=== PATIENT | female | born 1975 | race Caucasian/White ===

== ENCOUNTER 2018-02-15 05:36 | Day surgery (SDC) | END 2018-02-15 10:00 | disposition home or self-care (01) ==

== ENCOUNTER → 2018-11-06 | Emergency (ER) | payer OTHER ==
[~2018-11-06] VITALS: Ht 160 cm; Wt 71.1 kg
[~2018-11-06] MED LIST: HYDR-4011 PO; IBUP-1542 PO; IBUPROFEN 600 MG TAB PO ONE; IOHEXOL 300MG/ML 150 ML BTL ONE; MECLIZINE 12.5 MG TAB PO ONE; SOD CHLORIDE 0.9% 1,000 ML IV ONE; SOD CHLORIDE 0.9% 100 ML ONE
[2018-11-06 12:53] VITALS: Ht 160 cm; Wt 71.1 kg
--- NOTE | 2018-11-06 20:35 | ERD ---
ER Documentation Chief Complaint Chief Complaint lt side headache , neck pain , lt arm amd leg pain x 1 month HPI 43-year-old female presents for pain in multiple sites times 1 month. She states she has pain on the left side of her body. Pain is in her head, neck, left arm, left leg, left pelvic area. She states she has a tingling sensation. She also admits to dizziness. She denies any trauma. His physical activity. She denies any heavy lifting. She has had prior similar symptoms in the past however she states that the pain seems to be worse this time. She denies fevers or chills. Denies recent infection. ROS All systems reviewed and are negative except as per history of present illness. Medications Home Meds Active Scripts Hydrocodone/Acetaminophen (Essex 5-325 Tablet) 1 Each Tablet, 1 TAB PO Q6H PRN for PAIN, #10 TAB Prov:APRIL JUÁREZ DO 11/06/18 Ibuprofen* (Motrin*) 600 Mg Tab, 600 MG PO Q6H PRN for PAIN AND OR ELEVATED TEMP, #30 TAB Prov:APRIL JUÁREZ DO 11/06/18 Allergies Allergies: Coded Allergies: No Known Allergy (Unverified , 02/14/18) PMhx/Soc History of Surgery: Yes (3 c/s, back cyst remove) Anesthesia Reaction: No Hx Neurological Disorder: No Hx Respiratory Disorders: No Hx Cardiac Disorders: No Hx Psychiatric Problems: No Hx Miscellaneous Medical Probl: No Hx Alcohol Use: No Hx Substance Use: No Hx Tobacco Use: Yes (10 cig a day) Smoking Status: Current every day smoker Physical Exam Vitals Vital Signs Date Temp Pulse Resp B/P (MAP) Pulse Ox O2 O2 Flow FiO2 Time Delivery Rate 11/06/18 98.5 73 18 101/61 96 Room Air 20:48 (74) 11/06/18 98.1 88 18 159/73 98 12:53 (101) Physical Exam Const: No acute distress Head: Atraumatic Eyes: Normal Conjunctiva ENT: Normal External Ears, Nose and Mouth. Neck: Full range of motion. No meningismus. There is mild cervical neck paravertebral muscle tenderness palpation Resp: Clear to auscultation bilaterally Cardio: Regular rate and rhythm, no murmurs, bilateral radial and dorsalis pedis pulses intact Abd: Soft, non distended. Normal bowel sounds, mild left pelvic tenderness palpation, no palpable masses noted Skin: No petechiae or rashes Back: No midline or flank tenderness, 5 out of 5 motor strength bilateral upper and lower extremity Ext: No cyanosis, or edema, left arm and left leg range of motion intact Neur: Awake and alert, bilateral upper and lower tremors sensation intact Psych: Normal Mood and Affect Result Diagram: 11/06/18 1440 11/06/18 1440 Results 24 hrs Laboratory Tests Test 11/06/18 14:40 11/06/18 14:47 11/06/18 16:13 White Blood Count 12.0 10^3/ul Red Blood Count 4.86 10^6/ul Hemoglobin 13.8 g/dl Hematocrit 42.2 % Mean Corpuscular Volume 86.8 fl Mean Corpuscular Hemoglobin 28.4 pg Mean Corpuscular 32.7 g/dl Hemoglobin Concent Red Cell Distribution Width 12.3 % Platelet Count 270 10^3/UL Mean Platelet Volume 10.9 fl Immature Granulocytes % 0.500 % Neutrophils % 65.8 % Lymphocytes % 29.5 % Monocytes % 3.2 % Eosinophils % 0.8 % Basophils % 0.2 % Nucleated Red Blood Cells % 0.0 /100WBC Immature Granulocytes # 0.060 10^3/ul Neutrophils # 7.9 10^3/ul Lymphocytes # 3.5 10^3/ul Monocytes # 0.4 10^3/ul Eosinophils # 0.1 10^3/ul Basophils # 0.0 10^3/ul Nucleated Red Blood Cells # 0.0 10^3/ul Sodium Level 139 mmol/L Potassium Level 3.7 mmol/L Chloride Level 104 mmol/L Carbon Dioxide Level 27 mmol/L Anion Gap 8 Blood Urea Nitrogen 9 mg/dl Creatinine 0.72 mg/dl Est Glomerular Filtrat > 60 mL/min Rate mL/min Glucose Level 86 mg/dl Calcium Level 9.4 mg/dl Total Bilirubin 0.2 mg/dl Direct Bilirubin 0.00 mg/dl Indirect Bilirubin 0.2 mg/dl Aspartate Amino Transf (AST/SGOT) 18 IU/L Alanine 19 IU/L Aminotransferase (ALT/SGPT) Alkaline Phosphatase 71 IU/L Total Protein 7.3 g/dl Albumin 4.3 g/dl Globulin 3.00 g/dl Albumin/Globulin Ratio 1.43 Urine Color STRAW Urine Clarity CLEAR Urine pH 5.0 Urine Specific [place] 1.005 Urine Ketones NEGATIVE mg/dL Urine Nitrite NEGATIVE mg/dL Urine Bilirubin NEGATIVE mg/dL Urine Urobilinogen NEGATIVE mg/dL Urine Leukocyte Esterase NEGATIVE Lul/ul Urine Hemoglobin NEGATIVE mg/dL Urine Glucose NEGATIVE mg/dL Urine Total Protein NEGATIVE mg/dl POC Beta HCG, Qualitative NEGATIVE Current Medications Medications Dose Sig/Micha Start Time Status Last (Trade) Ordered Route PRN Stop Time Admin Dose Reason Admin Ibuprofen 600 mg ONCE ONCE 11/06/18 DC 11/06/18 (Motrin) PO 14:00 11/06/18 14:15 14:01 Meclizine 25 mg ONCE ONCE 11/06/18 DC 11/06/18 HCl PO 14:00 11/06/18 14:14 (Antivert) 14:01 Sodium 1,000 ml @ Q1H ONCE 11/06/18 DC 11/06/18 Chloride 1,000 mls/hr IV 17:00 11/06/18 16:52 17:59 IV Flush 10 ml STK-MED 11/06/18 DC (NS 10 ml) ONCE .ROUTE 18:14 11/06/18 18:15 Sodium 100 ml @ ud STK-MED 11/06/18 DC Chloride ONCE .ROUTE 18:14 11/06/18 18:15 Iohexol 150 ml STK-MED 11/06/18 DC (Omnipaque ONCE .ROUTE 18:14 11/06/18 300mg/ ml) 18:15 Procedures/MDM Medical Decision Making: Patient presents with pain at multiple body parts. She did state that the pain in her pelvic area is the worst one. Differential diagnosis includes but not limited to ovarian cyst rupture, ai endicitis, diverticulitis, ovarian torsion, hernia, musculoskeletal pain. Patient appeared well on physical exam. ED course: Patient was given meclizine, IV fluids, motrin. Symptoms improved with treatment. CBC: no e/o of systemic infection or severe anemia, mildly elevated WBC of 12 CMP: no e/o severe acidosis, alkalosis, renal failure, diabetic ketoacidosis, liver disease UA negative for infection Pelvic ultrasound was done however the left ovary was not well visualized. The right ovary was noted to be normal. CT abdomen and pelvis with IV contrast showed 2 cysts in the left ovary about 9.5 mm and 10 mm in diameter, no free fluid noted, sigmoid colon noted to be normal, there is no signs of kidney stones or hydronephrosis. On reevaluation the patient states that she still had pain. Patient was given Motrin however she refused to take any other pain medications because she wanted to know what was wrong with her. Offered to give the patient additional pain medications however she stated that she had go home to her children and prefer to get prescription pain medication and return to ER if her pain continues. Prescription(s): Patient given prescription for supportive medication(s) include Motrin and Essex short course low-dose. Patient advised to follow up with PCP in 1-2 days. Patient advised to return to ED for new or worsening symptoms. Patient stable on discharge from the ED. The patient has been prescribed Essex during this encounter. The patient has been warned about the use of narcotics. The patient should not drive or operate heavy machinery while taking this medication. The patient was also warned about the addictive properties of narcotic medications. Narcan prescription was NOT provided given the following criteria 1. No more than 5 tablets of Essex 10 mg or 10 tablets of Essex 5 mg were prescribed. 2. Concomitant opiate and benzodiazepine prescriptions were not provided. 3. There is no obvious evidence of prior history of opiate abuse or overdose. Disclaimer: Inadvertent spelling and grammatical errors are likely due to EHR/dictation software use and do not reflect on the overall quality of patient care. Also, please note that the electronic time recorded on this note does not necessarily reflect the actual time of the patient encounter. Departure Diagnosis: Primary Impression: Pelvic pain Condition: Fair Patient Instructions: Pelvic Pain, Unknown Cause Referrals: [facility] YOU HAVE RECEIVED A MEDICAL SCREENING EXAM AND THE RESULTS INDICATE THAT YOU DO NOT HAVE A CONDITION THAT REQUIRES URGENT TREATMENT IN THE EMERGENCY DEPARTMENT. FURTHER EVALUATION AND TREATMENT OF YOUR CONDITION CAN WAIT UNTIL YOU ARE SEEN IN YOUR DOCTORS OFFICE WITHIN THE NEXT 1-2 DAYS. IT IS YOUR RESPONSIBILITY TO MAKE AN APPOINTMENT FOR FOLOW-UP CARE. IF YOU HAVE A PRIMARY DOCTOR --you should call your primary doctor and schedule an appointment IF YOU DO NOT HAVE A PRIMARY DOCTOR YOU CAN CALL OUR PHYSICIAN REFERRAL HOTLINE AT IF YOU CAN NOT AFFORD TO SEE A PHYSICIAN YOU CAN CHOSE FROM THE FOLLOWING [facility] [address] [facility] [address] [facility] [place] [address] [facility] [address] [facility] [address] [facility]. [facility] [address] Additional Instructions: Call your primary care doctor TOMORROW for an appointment during the next 1-2 days.See the doctor sooner or return here if your condition worsens before your appointment time. Return to ED for new or worsening pain APRIL JUÁREZ DO Nov 06, 2018 20:35
[2018-11-06 20:48] VITALS: BP 101/61; PULSE 73; RESP 18
== END | disposition home or self-care (01) ==
LOC: FTE 12:50
DX: R10.2 Pelvic and perineal pain (principal); F17.210 Nicotine dependence, cigarettes, uncomplicated
CPT/HCPCS: 74177; 76830; 76856; 80053; 81003; 81025; 85025; 96360; 96361; J7030; Q9967; Z7502; Z7610